=== PATIENT | female | born 1940 | race Caucasian/White ===

== ENCOUNTER → 2016-08-26 | Day surgery (SDC) | payer MEDICARE, BC ==
[~2016-08-26] MED LIST: AMLODIPINE BESYL5 MG PO; ASPIRIN81 M2 PO; ATORVASTATIN CA80 MG PO; CALCITONIN-SAL3.7 ML; CALCIUM 500 +1 EAC1 PO; CENTRUM MULTIV1 EACH PO; CLIMARA.0375 MG/2 TD; COZAAR100 MG PO; CYMBALTA30 MG PO; ESTROVEN 155 M155 MG; FOLIC ACID1 MG PO; HYDROCODON-ACE1 EAC5 PO; LIPITOR80 MG PO; LOSARTAN-HCTZ1 EAC3 PO; MAGNESIUM100 MG PO; MOBIC PO; NASCOBAL1 EACH; PANTOPRAZOLE SO40 MG PO; PERCOCET7.5 PO; SYNTHROID25 MCG PO; VITAMIN D31000 UNIT PO; XANAX1 MG PO; ZYRTEC10 M2 PO
--- NOTE | ~2016-08-26 | OR ---
Unit #: [id number] #: [id number] Patient: KAITLYNN OLMOS [id number] [address] [place], [place] [address] [id number] MR#: [id number] NAME: KAITLYNN OLMOS ROOM: Date of Procedure: 08/26/2016 Admission Date: 08/26/2016 Surgeon: Donato Almazan M.D. : 1940 Attending Physician: Donato Almazan M.D. Referring Physician: Donato Almazan M.D. Primary Care Physician: Haroon Tellez M.D. OPERATIVE REPORT PREOPERATIVE DIAGNOSES Low back pain, degenerative facet disease. POSTOPERATIVE DIAGNOSES Low back pain, degenerative facet disease. PROCEDURE PERFORMED Lumbar facet injection x2 levels with intravenous sedation and fluoroscopic guidance for needle localization. INDICATIONS FOR PROCEDURE The patient is a 76-year-old female with return of previous mentioned symptoms. She last treated with facet injections approximately 9 months ago. She did very well for about 5-1/2 to 6 months. This happened in the past as well. Repeat facet injection at this point based on history, pathology, symptomatology, and response to treatment. DESCRIPTION OF PROCEDURE The patient was placed in a prone position. Standard monitors were applied. Sterile prep and drape of the lumbar area was performed. 2 mg of Versed were given for sedation and anxiolysis, which were adequate. Vital signs remained stable. The skin then overlying the left L4-L5 and L5-S1 facet joints localized with 1% lidocaine. Fluoroscopy was used to guide a 22-gauge Quincke point spinal needle down to the needle tip into the respective L4-L5 and L5-S1 facet joints on the left. After this was confirmed with fluoroscopy, a dose of 1 mL of a mixture of 80 mg Depo-Medrol and 3 mL of 0.25% bupivacaine were deposited. The needles were flushed and removed. The patient tolerated this part of procedure well. The exact same procedure was then repeated on the right at the L4-L5 and L5-S1 levels. Again, fluoroscopy was used to confirm proper needle tip positioning within the edge of the facet joints. After confirming this, a dose of the medication with 1 mL of the previously mentioned mixture. The needles were flushed and removed. Dictated by... Bradley Armenta/macarena Unit #: [id number] #: [id number] Patient: KAITLYNN OLMOS TD: 08/26/2016 17:12 JOB #: [id number] OPERATIVE REPORT Page 1 of 1 X Donato Almazan MD X PROCEDURE OPERATIVE NOTE
== END | disposition home or self-care (01) ==
LOC: CCSC 09:33
DX: M47.26 Other spondylosis with radiculopathy, lumbar region (principal)
CPT/HCPCS: J1040; J2250